=== PATIENT | male | born 1955 | race African-American/Black ===

== ENCOUNTER 2023-09-02 15:08 | Inpatient (IN) | payer MEDICARE, MEDICAID ==
[~2023-09-02] VITALS: Ht 172.7 cm; Wt 72.6 kg
[2023-09-02 16:11] LABS: BASOPHILS % 0.3 % (0.0-2.0); DIFFERENTIAL COMMENT 0; EOSINOPHILS % 0.4 % (0.0-5.0); HEMATOCRIT. 40.6 % (42.0-52.0); HEMOGLOBIN. 13.9 g/dL (14.0-18.0); MEAN CORPUSCULAR HEMOGLOBIN 34.7 pg (28.0-32.0); MEAN CORPUSCULAR HGB CONC 34.2 g/dL (31.0-37.0); MEAN CORPUSCULAR VOLUME 101.4 fL (80.0-94.0); MEAN PLATELET VOLUME 8.6 fl (7.4-10.4); MONOCYTES % 5.9 % (2.0-8.0); NEUTROPHILS % 85.4 % (40.0-76.0); PLATELET 251 x1000/uL (130-400); RED CELL DISTRIBUTION WIDTH 15.2 % (11.6-14.6); WHITE BLOOD COUNT 9.4 x1000/uL (4.5-11.0)
[2023-09-02 16:18] LABS: CHLORIDE 104 mEq/L (98-107); POTASSIUM 4.4 mEq/L (3.5-5.1); SODIUM 137 mEq/L (136-145)
[2023-09-02 16:19] LABS: CALCIUM 10.1 mg/dL (8.7-10.4); CARBON DIOXIDE 28 mEq/L (21-32)
[2023-09-02 16:20] LABS: PARTIAL THROMBOPLASTIN TIME 26.6 sec (23.4-31.0); PROTHROMBIN TIME 11.4 sec (9.6-11.0)
[2023-09-02] MEDS: MORPHINE SULFATE 4 MG/ML INJ (FOR IV/IM USE) IV STA (16:20)
[2023-09-02] MEDS: SODIUM CHLORIDE 0.9% 1,000 ML IV ONE (16:20)
[2023-09-02] MEDS: ONDANSETRON HCL 4MG/2ML INJ IV STA (16:20)
[2023-09-02 16:24] LABS: CREATININE 1.2 mg/dL (0.6-1.3); GLUCOSE 106 mg/dL (70-105); UREA NITROGEN BLOOD 32 mg/dL (9-23)
[2023-09-02 16:26] LABS: ALANINE AMINOTRANSFERASE 11 IU/L (10-49); ALBUMIN 4.6 g/dL (3.2-4.8); ASPARTATE AMINOTRANSFERASE 25 IU/L (<34)
[2023-09-02 16:27] LABS: BILIRUBIN TOTAL 0.3 mg/dL (0.1-1.0); PROTEIN TOTAL 8.1 g/dL (6.0-8.3)
[2023-09-02] MEDS ORDERED: GUAIFENESIN 200MG/10ML SUGAR FREE UDC PO PRN (18:15)
[2023-09-02] MEDS ORDERED: ONDANSETRON HCL 4MG/2ML INJ IV PRN (18:15)
[2023-09-02] MEDS ORDERED: TRAMADOL 50MG TABLET PO PRN (18:15)
[2023-09-02] MEDS ORDERED: DOCUSATE SODIUM 100MG CAPSULE PO PRN (18:15)
[2023-09-02] MEDS ORDERED: ACETAMINOPHEN 325MG TABLET PO PRN (18:15)
[2023-09-02] MEDS: SODIUM CHLORIDE 0.45% 1,000 ML IV SCH (18:36)
[2023-09-02 20:34] VITALS: PULSE 87; RESP 22; O2SAT 97
[2023-09-02] MEDS: IPRATROPIUM/ALBUTEROL 0.5-3(2.5)MG/3ML NEB HHN PRN (20:34)
[2023-09-02] MEDS: ENOXAPARIN 40MG/0.4ML SYR SUBCUT SCH (21:00)
[2023-09-02 22:55] VITALS: BP 150/82; PULSE 84; RESP 19; TEMP 98.8
[2023-09-03] VITALS (8 sets, daily range): BP systolic 114–155; BP diastolic 70–79; PULSE 64–101; RESP 16–24; TEMP 97.4–100; O2SAT 98–99
[2023-09-03] MEDS: MAGNESIUM/ALUMINUM HYDROXIDE/SIMETHICONE 30ML UDC PO PRN (01:37)
[2023-09-03 06:38] LABS: MEAN CORPUSCULAR HEMOGLOBIN 34.3 pg (28.0-32.0); MEAN CORPUSCULAR HGB CONC 34.2 g/dL (31.0-37.0); MEAN CORPUSCULAR VOLUME 100.1 fL (80.0-94.0); MEAN PLATELET VOLUME 9.1 fl (7.4-10.4); PLATELET 203 x1000/uL (130-400); RED BLOOD CELL COUNT 3.79 mill/uL (4.7-6.1); RED CELL DISTRIBUTION WIDTH 15.1 % (11.6-14.6); WHITE BLOOD COUNT 10.4 x1000/uL (4.5-11.0)
[2023-09-03 06:39] LABS: CHLORIDE 105 mEq/L (98-107); POTASSIUM 4.3 mEq/L (3.5-5.1); SODIUM 140 mEq/L (136-145)
[2023-09-03 06:41] LABS: CALCIUM 9.3 mg/dL (8.7-10.4); CARBON DIOXIDE 28 mEq/L (21-32)
[2023-09-03 06:46] LABS: CREATININE 1.3 mg/dL (0.6-1.3); GLUCOSE 100 mg/dL (70-105); TRIGLYCERIDE 87 mg/dL (0-150); UREA NITROGEN BLOOD 29 mg/dL (9-23)
[2023-09-03 06:47] LABS: ALANINE AMINOTRANSFERASE 10 IU/L (10-49); LDL CHOLESTEROL 123 mg/dL (5-100)
[2023-09-03 06:48] LABS: ASPARTATE AMINOTRANSFERASE 24 IU/L (<34); CHOLESTEROL 182 mg/dL (<200); HDL CHOLESTEROL 59 mg/dL (>55)
[2023-09-03 06:49] LABS: BILIRUBIN TOTAL 0.4 mg/dL (0.1-1.0); PROTEIN TOTAL 7.1 g/dL (6.0-8.3)
[2023-09-03 07:19] LABS: DIFFERENTIAL COMMENT 1
[2023-09-03 14:07] LABS: ANISOCYTOSIS 1+; PLATELET ESTIMATE NORMAL
[2023-09-03] MEDS ORDERED: NALOXONE HCL 0.4MG/ML VIAL IV PRN (17:00)
[2023-09-03] MEDS: HYDROCODONE/ACETAMINOPHEN 7.5/325MG TABLET PO PRN (21:34)
[2023-09-04] VITALS (7 sets, daily range): BP systolic 110–165; BP diastolic 61–109; PULSE 70–96; RESP 16–20; TEMP 97.9–99.3; O2SAT 97
[2023-09-04] MEDS: CLONIDINE 0.1MG TABLET PO PRN (00:22)
[2023-09-05] VITALS (8 sets, daily range): BP systolic 103–128; BP diastolic 62–77; PULSE 73–78; RESP 18–22; TEMP 97.1–99.7; O2SAT 97–100
[2023-09-05] MEDS: HYDROCODONE/ACETAMINOPHEN 5/325MG TABLET PO PRN (17:23)
[2023-09-05] MEDS ORDERED: ATORVASTATIN CALCIUM 20MG TABLET PO SCH (21:00)
== END 2023-09-05 18:05 | disposition home or self-care (01) | DRG 700 ==
LOC: ER 15:08 → 6EST 16:55 → EDBEDREQ 16:59 → EDBEDREQSVC 16:59 → EDBEDREQTM 16:59
PROVIDERS: ADMIT Hospitalist; ATTEND Hospitalist
DX: T83.022A Displacement of nephrostomy catheter, initial encounter (principal); J45.909 Unspecified asthma, uncomplicated; D64.9 Anemia, unspecified; N26.1 Atrophy of kidney (terminal); E78.5 Hyperlipidemia, unspecified; R79.89 Other specified abnormal findings of blood chemistry; Z85.46 Personal history of malignant neoplasm of prostate; Z85.07 Personal history of malignant neoplasm of pancreas; Y73.2 Prosthetic and other implants, materials and accessory gastroenterology and urology devices associated with adverse incidents; Y92.89 Other specified places as the place of occurrence of the external cause
CPT/HCPCS: 36415; 71045; 74176; 76770; 80053; 80061; 83880; 85025; 86850; 86900; 93005; 93970; 94640; 99285; J1650; J2270; J2405; J7030